=== PATIENT | female | born 1985 | race Caucasian/White ===

== ENCOUNTER 2016-06-22 14:46 | Emergency (ER) | payer SELFPAY ==
[~2016-06-22] VITALS: Ht 152.4 cm; Wt 46.0 kg
[2016-06-22 14:48] VITALS: BP 155/104
[2016-06-22] MEDS ORDERED: DEXAMETHASONE 4 MG TABLET ONE (15:59)
[2016-06-22] MEDS ORDERED: DEXAMETHASONE 4 MG TABLET PO ONE (16:00)
== END 2016-06-22 16:07 | disposition home or self-care (01) ==
LOC: ED 15:36
DX: J02.8 Acute pharyngitis due to other specified organisms (principal); B97.89 Other viral agents as the cause of diseases classified elsewhere; I10 Essential (primary) hypertension; F41.9 Anxiety disorder, unspecified; M54.30 Sciatica, unspecified side; F12.10 Cannabis abuse, uncomplicated
CPT/HCPCS: 99282

== ENCOUNTER 2016-06-25 14:53 | Emergency (ER) | payer SELFPAY ==
[~2016-06-25] VITALS: Ht 152.4 cm; Wt 45.5 kg
[2016-06-25 14:56] VITALS: BP 150/108
[2016-06-25] MEDS ORDERED: DEXAMETHASONE 4 MG TABLET PO ONE (15:30)
[2016-06-25] MEDS ORDERED: DEXAMETHASONE 4 MG TABLET ONE (15:33)
== END 2016-06-25 15:40 | disposition home or self-care (01) ==
LOC: ED 15:20
DX: J01.00 Acute maxillary sinusitis, unspecified (principal); J01.10 Acute frontal sinusitis, unspecified; J03.90 Acute tonsillitis, unspecified
CPT/HCPCS: 99283